=== PATIENT | male | born 1955 | race Caucasian/White ===

== ENCOUNTER → 2017-08-24 | Outpatient (CLI) | payer MEDICARE ==
[2017-08-24 15:20] LABS: Basophils # (A) 0.1 k/uL (0-0.2); Basophils % (A) 1 %; CH 30.7; CHCM 31.9; Eosinophils # (A) 0.1 k/uL (0-0.7); Eosinophils % (A) 2 %; HCT 48.3 % (39.0-53.0); HDW 2.39; HGB 15.1 gm/dL (13.0-17.5); Luc # (Auto) 0.15; Luc % (Auto) 2; Lymphocytes # (A) 2.6 k/uL (1.0-4.8); Lymphocytes % (A) 35 %; MCH 30.3 pg (25.0-35.0); MCHC 31.3 g/dL (31.0-37.0); MCV 96.6 fL (80.0-100.0); Mean Platelet Volume 6.9; Monocytes # (A) 0.6 k/uL (0-1.0); Monocytes % (A) 7 %; Neutrophils # (A) 4.1 k/uL (1.3-7.7); Neutrophils % (A) 54 %; RDW 13.4 % (11.5-15.5); WBC 7.5 k/uL (3.8-10.6); WBC (Perox) 7.02
[2017-08-24 15:31] LABS: ALT 40 U/L (21-72); AST 29 U/L (17-59); Alkaline Phosphatase 54 U/L (38-126); Anion Gap 9 mmol/L; Blood Urea Nitrogen 14 mg/dL (9-20); Calcium 10.3 mg/dL (8.4-10.2); Carbon Dioxide 30 mmol/L (22-30); Chloride 104 mmol/L (98-107); Glucose 97 mg/dL (74-99); Non-African American GFR(MDRD) >60 (>60 ml/min/1.73 sqM); Potassium 5.2 mmol/L (3.5-5.1); Sodium 143 mmol/L (137-145); Total Bilirubin 0.5 mg/dL (0.2-1.3); Total Protein 7.1 g/dL (6.3-8.2)
[2017-08-24 18:51] LABS: Iron Saturation 32.21 (15.00-50.00)
== END | disposition home or self-care (01) ==
LOC: LABWHC1 14:56
PROVIDERS: ATTEND Nurse Practitioner Acute Care
DX: E55.9 Vitamin D deficiency, unspecified (principal); M62.838 Other muscle spasm
CPT/HCPCS: 36415; 80053; 82306; 83540; 83550; 84466; 85025

== ENCOUNTER → 2020-10-05 | Outpatient (CLI) | payer MEDICARE ==
[2020-10-05 07:30] LABS: African American GFR (CKD) >90 (>60 ml/min/1.73 sqM); Blood Urea Nitrogen 22 mg/dL (9-20); Non-African American GFR(CKD) >90 (>60 ml/min/1.73 sqM)
--- NOTE | 2020-10-05 10:51 | CT ---
EXAMINATION TYPE: CT angio head DATE OF EXAM: 10/05/2020 COMPARISON: 08/03/2010 HISTORY: 65-year-old male I63.9, unspecified CVA TECHNIQUE: Contiguous axial scanning of the head performed without and with IV Contrast, patient inje cted with 100 ml mL of Isovue 370. Coronal/sagittal reconstructions performed. 3-D reconstructions ge nerated on a dedicated independent workstation. CT DLP: 2192 mGycm Automated exposure control for dose reduction was used. FINDINGS: Initial noncontrast images of the head show left frontal and left frontotemporal and left frontal orb ital craniotomies. Underlying dural calcifications likely dystrophic change. Multifocal areas of encephalomalacia anterior left frontal lobe and left frontoparietal, posterior le ft parietal, and to a lesser extent right parieto-occipital regions are demonstrated. Encephalomalaci a in the left frontal lobe has further evolved from 2009 and the encephalomalacia within the right pa rieto-occipital junction appears new from . No evidence for acute intracranial hemorrhage, mass, mass effect, midline shift, or hydrocephalus. No effacement of basal subarachnoid cisterns. No extra-axial fluid collection seen. Aneurysm clip at the intercommunicating artery level redemonstrated. Moderate mucosal thickening maxillary sinuses. Rightward nasal septal deviation. Relatively small caliber to the V4 segment vertebral and basilar arteries. Prominent bilateral machinist helper ior communicating arteries are demonstrated. Posterior circulation is patent. Mild atherosclerotic calcifications within the carotid siphons. Remainder of the anterior circulation is patent. No aneurysmal changes identified. IMPRESSION: 1. PRIOR LEFT-SIDED CRANIOTOMY FLAP. MULTIFOCAL AREAS OF ENCEPHALOMALACIA LEFT CEREBRAL HEMISPHERE AN D A SMALLER AREA WITHIN THE RIGHT PARIETO-OCCIPITAL JUNCTION, CHANGES RELATED TO PRIOR INFARCTS. 2. NO ACUTE INTRACRANIAL ABNORMALITY SEEN. 3. PRIOR ANEURYSM CLIPPING AT THE ANTERIOR COMMUNICATING ARTERY LEVEL. NO LARGE VESSEL INTRACRANIAL A RTERIAL OCCLUSION OR OTHER ANEURYSMAL CHANGE IS SEEN. 4. RELATIVELY SMALL CALIBER TO THE VERTEBRAL AND BASILAR ARTERIES WITH PROMINENT BILATERAL POSTERIOR COMMUNICATING ARTERIES. CORRELATE FOR ANY POTENTIAL CHRONIC SYMPTOMS OF VERTEBROBASILAR INSUFFICIENCY .
== END | disposition home or self-care (01) ==
LOC: RADCTMAIN 06:49
PROVIDERS: ATTEND Psychiatry & Neurology Neurology
DX: G93.89 Other specified disorders of brain (principal); I63.9 Cerebral infarction, unspecified; Z98.890 Other specified postprocedural states
CPT/HCPCS: 82565; 84520; 70496; 36415; Q9967